=== PATIENT | female | born 1985 | race Caucasian/White ===

== ENCOUNTER 2024-11-22 01:48 | Outpatient (CLI) | payer BC, SELFPAY ==
[2024-11-22 09:35] LABS: Calculated LDL 164 mg/dL (<100); Cholesterol 252 mg/dL (<200); HDL Cholesterol 65 mg/dL (>or=50); Triglyceride 118 mg/dL (<150)
[2024-11-22 09:52] LABS: Glucose 112 mg/dL (74-106)
== END 2024-11-22 01:49 | disposition home or self-care (01) ==
LOC: LBO 01:48
PROVIDERS: PCP Nurse Practitioner Family; Referring Provider Nurse Practitioner Family; Visit Provider Nurse Practitioner Family
DX: Z00.00 Encounter for general adult medical examination without abnormal findings (principal)
CPT/HCPCS: 36415; 80061; 82947

== ENCOUNTER 2024-11-22 10:38 | Outpatient (CLI) | payer BC, SELFPAY ==
--- NOTE | 2024-11-22 10:15 | DI.RAD_ITS ---
Exam(s) XR FOOT LT COMPLETE EXAM: XR FOOT LT COMPLETE CLINICAL HISTORY: M79.672 pain Left foot/ heel: pinpoint area- TX ineffective. TECHNIQUE: 2D digital imaging was performed. Three views. COMPARISON: No exams were available for comparison FINDINGS: BONES: No acute fracture is present. No bony destructive lesion is seen. Heel spurs. JOINTS: No dislocation present. SOFT TISSUE: Normal. No visible foreign body or abnormal gas collection. IMPRESSION: Heel spurs. DATA REPOSITORY: RADIATION DOSE DELIVERED:
== END 2024-11-22 10:58 ==
LOC: DI 10:39
PROVIDERS: PCP Nurse Practitioner Family; Visit Provider Nurse Practitioner Family
DX: M79.672 Pain in left foot (principal)
CPT/HCPCS: 73630

== ENCOUNTER 2025-01-05 01:11 | Outpatient (CLI) | payer BC, SELFPAY ==
[2025-01-06 15:09] LABS: Hemoglobin A1C 5.6 % (<5.7)
[2025-01-09 17:16] LABS: Apolipoprotein B, Serum 116 mg/dL (48-124); Beta VLDL Cholesterol Not Detected mg/dL (<15); Beta VLDL Triglycerides Not Detected mg/dL (<15); Cholesterol, Total, CDC 235 mg/dL; Chylomicron Cholesterol Not Detected; Chylomicron Triglycerides Not Detected; HDL Cholesterol, CDC 49 mg/dL (>=50); LDL Cholesterol 161 mg/dL; LDL Triglycerides 50 mg/dL (<=50); Lp(a) Cholesterol <5 mg/dL (<5); LpX Not detected; Triglycerides, CDC 143 mg/dL; VLDL Cholesterol 25 mg/dL (<30); VLDL Triglycerides 74 mg/dL (<120)
== END 2025-01-05 01:12 | disposition home or self-care (01) ==
LOC: LBO 01:11
PROVIDERS: PCP Nurse Practitioner Family; Referring Provider Nurse Practitioner Family; Visit Provider Nurse Practitioner Family
DX: R73.01 Impaired fasting glucose (principal); E78.00 Pure hypercholesterolemia, unspecified
CPT/HCPCS: 36415; 80061; 82172; 82664; 83036

== ENCOUNTER 2025-03-29 08:29 | Outpatient (CLI) | payer BC, SELFPAY ==
[2025-04-04 14:35] LABS: Apolipoprotein B, Serum 81 mg/dL (48-124); Beta VLDL Cholesterol Not Detected mg/dL (<15); Beta VLDL Triglycerides Not Detected mg/dL (<15); Cholesterol, Total, CDC 172 mg/dL; Chylomicron Cholesterol Not Detected; Chylomicron Triglycerides Not Detected; HDL Cholesterol, CDC 48 mg/dL (>=50); LpX Not detected; Triglycerides, CDC 137 mg/dL; VLDL Triglycerides 86 mg/dL (<120)
== END 2025-03-29 08:30 | disposition home or self-care (01) ==
LOC: LBO 08:29
PROVIDERS: PCP Nurse Practitioner Family; Visit Provider Nurse Practitioner Family
DX: E78.00 Pure hypercholesterolemia, unspecified (principal)
CPT/HCPCS: 36415; 80061; 82172; 82664